=== PATIENT | female | born 1950 | race Caucasian/White ===

== ENCOUNTER 2022-02-17 11:34 | Emergency (ER) | payer MEDICARE, BC ==
--- NOTE | 2022-02-17 11:38 | ERPHSYRPT ---
- History of Present Illness Time Seen by Provider: 02/17/22 11:38 Source: patient, EMS Exam Limitations: no limitations Physician History: This is a 71-year-old white female who had been in the [facility] postoperatively after having an ostomy placed. It is in the right lower quadrant of her abdomen. In the last week patient has noticed some bleeding from the site. The concern is that today, it was more profuse and constant. Upon arrival to the emergency department, the ostomy itself was pink and functioning. However there was evidence of peristomal brisk bleeding. Patient denies any abdominal pain. Patient denies chest pain. She has no shortness of breath. Timing/Duration: week(s), intermittent, worse Severity: mild (To moderate) Associated Symptoms: weakness, No nausea, No vomiting, No abdominal pain, No shortness of breath, No chest pain Allergies/Adverse Reactions: No Known Drug Allergies Allergy (Unverified 02/17/22 11:55) Travel Risk - International Travel Have you traveled outside of the country in past 3 weeks: No - Coronavirus Screening Are you exhibiting any of the following symptoms?: No Close contact with a COVID-19 positive Pt in past 14-21 Days: No - Review of Systems Constitutional: Weakness Eyes: No Symptoms Ears, Nose, & Throat: No Symptoms Respiratory: No Symptoms Cardiac: No Symptoms Abdominal/Gastrointestinal: No Symptoms Genitourinary Symptoms: No Symptoms Musculoskeletal: No Symptoms Skin: No Symptoms Neurological: No Symptoms Psychological: No Symptoms Endocrine: No Symptoms Hematologic/Lymphatic: Blood Clots (Earlier today and the ostomy site/bag) - Past Medical History Pertinent Past Medical History: Yes - Nursing Vital Signs Nursing Vital Signs: Initial Vital Signs Temperature 96.7 F 02/17/22 11:36 Pulse Rate 79 02/17/22 11:36 Respiratory Rate 16 02/17/22 11:36 Blood Pressure 119/56 02/17/22 11:36 O2 Sat by Pulse Oximetry 99 02/17/22 11:36 Pain Scale Pain Intensity 0 - Physical Exam General Appearance: no apparent distress, alert, anxiety Eye Exam: PERRL/EOMI, eyes nml inspection, pale conjunctivae Ears, Nose, Throat Exam: normal ENT inspection, dry mucous membranes Neck Exam: normal inspection, non-tender, supple, full range of motion Respiratory Exam: normal breath sounds, lungs clear, airway intact, No chest tenderness, No respiratory distress Cardiovascular Exam: regular rate/rhythm, normal heart sounds, normal peripheral pulses Gastrointestinal/Abdomen Exam: soft, normal bowel sounds, tenderness (Around stoma site.), other (There is peristomal excoriation with some bleeding in the caudal portion of the skin around the peristomal area. There is no evidence of bleeding from the stoma itself. It is pink and it is functioning.) Pelvic Exam: not done Rectal Exam: not done Back Exam: normal inspection, normal range of motion, No CVA tenderness, No vertebral tenderness Extremity Exam: normal inspection, normal range of motion, pelvis stable Neurologic Exam: alert, oriented x 3, cooperative Skin Exam: pale Lymphatic Exam: No adenopathy SpO2 Interpretation: normal O2 Delivery: Room Air - Course Nursing assessment & vital signs reviewed: Yes Ordered Tests: Active Orders 24 hr Category Date Time Status ABDOMEN AND PELVIS W/0 CONTRAS [CT] Stat Exams 02/17/22 14:06 Taken CBC W DIFF Stat Lab 02/17/22 12:25 Completed CMP Stat Lab 02/17/22 12:25 Completed PROTIME WITH INR Stat Lab 02/17/22 12:25 Completed Medication Summary Generic Name Dose Route Start Last Admin Trade Name Freq PRN Reason Stop Dose Admin Sodium Chloride 1,000 mls @ 100 mls/hr 02/17/22 13:15 02/17/22 13:18 Sodium Chloride 0.9% 1000 Ml IV 03/19/22 13:14 100 mls/hr .Q10H FRIDA Administration Lab/Rad Data: Laboratory Result Diagrams 02/17/22 12:25 02/17/22 12:25 Laboratory Results 02/17/22 02/17/22 02/17/22 Range/Units 13:20 12:25 12:25 WBC (4.0-10.5) K/mm3 RBC (4.1-5.4) M/mm3 Hgb (12.0-16.0) gm/dl Hct (35-47) % MCV (78-100) fl MCH (26-32) pg MCHC (32-36) g/dl RDW (11.5-14.0) % Plt Count (150-450) K/mm3 MPV (7.5-11.0) fl Gran % (36.0-66.0) % Eos # (Auto) (0-0.5) Absolute Lymphs (auto) (1.0-4.6) Absolute Monos (auto) (0.0-1.3) Lymphocytes % (24.0-44.0) % Monocytes % (0.0-12.0) % Eosinophils % (0.00-5.0) % Basophils % (0.0-0.4) % Absolute Granulocytes (1.4-6.9) Basophils # (0-0.4) PT 17.3 H (9.4-12.5) SECONDS INR 1.47 (0.8-3.0) Sodium 129 L (137-145) mmol/L Potassium 3.3 L (3.5-5.1) mmol/L Chloride 90 L (98-107) mmol/L Carbon Dioxide 29 (22-30) mmol/L Anion Gap 13.8 (5-15) MEQ/L BUN 55 H (7-17) mg/dL Creatinine 2.90 H (0.52-1.04) mg/dL Estimated GFR 17.0 ML/MIN Glucose 123 H (74-106) mg/dL Calcium 8.0 L (8.4-10.2) mg/dL Total Bilirubin 2.80 H (0.2-1.3) mg/dL AST 99 H (14-36) U/L ALT 67 H (0-35) U/L Alkaline Phosphatase 188 H (38-126) U/L Serum Total Protein 6.1 L (6.3-8.2) g/dL Albumin 3.3 L (3.5-5.0) g/dL ABO Group O Rh Factor POSITIVE Antibody Screen POSITIVE (NEGATIVE) Crossmatch Pending 02/17/22 Range/Units 12:25 WBC 5.7 (4.0-10.5) K/mm3 RBC 1.98 L (4.1-5.4) M/mm3 Hgb 6.2 L* (12.0-16.0) gm/dl Hct 18.8 L (35-47) % MCV 94.9 (78-100) fl MCH 31.3 (26-32) pg MCHC 33.0 (32-36) g/dl RDW 14.9 H (11.5-14.0) % Plt Count 108 L (150-450) K/mm3 MPV 11.0 (7.5-11.0) fl Gran % 74.0 H (36.0-66.0) % Eos # (Auto) 0.16 (0-0.5) Absolute Lymphs (auto) 0.83 L (1.0-4.6) Absolute Monos (auto) 0.48 (0.0-1.3) Lymphocytes % 14.5 L (24.0-44.0) % Monocytes % 8.4 (0.0-12.0) % Eosinophils % 2.8 (0.00-5.0) % Basophils % 0.3 (0.0-0.4) % Absolute Granulocytes 4.24 (1.4-6.9) Basophils # 0.02 (0-0.4) PT (9.4-12.5) SECONDS INR (0.8-3.0) Sodium (137-145) mmol/L Potassium (3.5-5.1) mmol/L Chloride (98-107) mmol/L Carbon Dioxide (22-30) mmol/L Anion Gap (5-15) MEQ/L BUN (7-17) mg/dL Creatinine (0.52-1.04) mg/dL Estimated GFR ML/MIN Glucose (74-106) mg/dL Calcium (8.4-10.2) mg/dL Total Bilirubin (0.2-1.3) mg/dL AST (14-36) U/L ALT (0-35) U/L Alkaline Phosphatase (38-126) U/L Serum Total Protein (6.3-8.2) g/dL Albumin (3.5-5.0) g/dL ABO Group Rh Factor Antibody Screen (NEGATIVE) Crossmatch - Progress Progress: improved, re-examined Progress Note: 02/17/22 14:17 I was able to obtain more history from the patient's . He states that the patient has chronically had issues with symptomatic anemia with hemoglobin as low as 3. One of the reasons the patient had a and ostomy is because they could not localize an area of bleeding from the large or small intestine. They remove the most likely area. However, the patient has had significant bleeding enough to decrease the hemoglobin to 6.2. I was just notified that the patient has at least 1 antibody during the type and screen/cross match. It will be at least 10 hours before we can get any blood that is crossmatched for this patient. The patient is hemodynamically stable at this time. Patient's surgeon is Dr. Krishna. Patient's primary care physician is Dr. Lang. 02/17/22 14:[address] Lang, the patient's primary care physician. In addition to the chronic recurring anemia and the inability to localize the area of intestinal bleeding, the patient has short gut syndrome. He does not feel that the patient should be admitted to this facility but should be admitted to a facility that has a gasser machine operator, general surgery and nephrology specialists available. 02/17/22 15:46 I contacted [facility] and spoke with nurse practitioner Fior Topete who was answering for Dr. Diaz. I reviewed the patient hist ory, physical findings, lab results, and diagnoses. They accept this patient in transfer to their facility. Discussed with : Benjamín Counseled pt/family regarding: lab results, diagnosis, need for follow-up, rad results - Departure Departure Disposition: Transfer Clinical Impression: Symptomatic anemia, Hemorrhage requiring transfusion, Hyponatremia, Short gut syndrome, Acute renal insufficiency, Elevated liver function tests Condition: Fair Critical Care Time: Yes Critical Care Time(excluding separately billable procedures): Critical 30-74 mins (30 minutes) Referrals: JEAN MARIE LANG MD [Primary Care Provider] - Follow up/PCP as directed
[2022-02-17 12:34] LABS: Absolute Neutrophil Ct (ANC) 4.24 (1.4-6.9); Basophil (Absolute #) 0.02 (0-0.4); Eosinophil % 2.8 % (0.00-5.0); Eosinophil (Absolute #) 0.16 (0-0.5); Hematocrit 18.8 % (35-47); Lymphocyte (Absolute #) 0.83 (1.0-4.6); Lymphocytes % 14.5 % (24.0-44.0); Mean Cell Volume 94.9 fl (78-100); Mean Corpuscular Hemoglobin 31.3 pg (26-32); Monocyte (Absolute #) 0.48 (0.0-1.3); Monocytes % 8.4 % (0.0-12.0); Platelet Count 108 K/mm3 (150-450); Red Blood Count 1.98 M/mm3 (4.1-5.4); Red Cell Distribution Width 14.9 % (11.5-14.0); White Blood Count 5.7 K/mm3 (4.0-10.5)
[2022-02-17 12:38] LABS: INR 1.47 (0.8-3.0); PROTIME 17.3 SECONDS (9.4-12.5)
[2022-02-17 12:45] LABS: ALBUMIN 3.3 g/dL (3.5-5.0); ANION GAP 13.8 MEQ/L (5-15); BILIRUBIN,TOTAL 2.8 mg/dL (0.2-1.3); Creatinine 1 2.9 mg/dL (0.52-1.04); Potassium 3.3 mmol/L (3.5-5.1); Total Protein 6.1 g/dL (6.3-8.2)
[2022-02-17 12:50] LABS: Hemoglobin 6.2 gm/dl (12.0-16.0)
[2022-02-17] MEDS ORDERED: Sodium Chloride 0.9% 1000 ML 1,000 ML IV SCH (13:15)
[2022-02-17] MEDS ORDERED: Sodium Chloride 0.9% 1000 ML 1,000 ML ONE (13:17)
[2022-02-17 14:24] LABS: ABO TYPING O; Antibody Screen POSITIVE (NEGATIVE); RH TYPING POSITIVE
[2022-02-17 15:52] LABS: CROSS MATCH (PRBC) INCOMPATIBLE (COMPATIBLE)
[2022-02-17 16:06] VITALS: BP 111/52; PULSE 77; O2SAT 100
--- NOTE | 2022-02-17 16:33 | XRAY ---
Indication: Bleeding around stoma. Multiple contiguous axial images obtained through the abdomen and pelvis without contrast. Comparison: None Lung bases are clear. Heart not enlarged. Small fluid in distal esophagus projecting from gastroesophageal reflux. Stomach is distended with food/fluid. Noncontrasted stomach and bowel loops appear nonobstructed with right lower quadrant colostomy. No suspicious fluid or air collection around stoma. Remaining colon demonstrates scattered diverticulosis without diverticulitis. Cirrhotic appearing liver with small perihepatic fluid. Spleen is enlarged measuring 13 cm. Tiny splenic/hepatic calcified granulomas. Previous cholecystectomy and hysterectomy. No walled off fluid collection or free air. Remaining pancreas, adrenal glands, kidneys, ureters, and bladder are unremarkable for noncontrast exam. Moderate scattered aortoiliac calcifications, especially origin right common iliac artery. No AAA. Osseous structures intact with osteopenia, mild/moderate multilevel degenerative spondylosis, minimal 2-3 mm L4 spondylolisthesis, mild dextroscoliosis centered at L3, and mild degenerative changes both hips. Impression: 1. Right lower quadrant colostomy without complications. 2. Small gastroesophageal reflux in distal esophagus. 3. Cirrhotic liver with perihepatic ascites and splenomegaly. 4. Diffuse arteriosclerotic disease, greatest right common iliac artery. CTA may yield further information if clinically warranted. 5. Colonic diverticulosis, chronic bony findings, and old granulomatous disease.
[2022-02-21 09:12] LABS: AB ID Interp SEE SEPARATE REPORT; ABO Blood Group and Rh Type SEE SEPARATE REPORT; Blood Bank Reference Report SEE SEPARATE REPORT
== END 2022-02-17 16:58 | disposition short-term general hospital (02) ==
LOC: ED 11:34
DX: K94.01 Colostomy hemorrhage (principal); D64.9 Anemia, unspecified; K91.2 Postsurgical malabsorption, not elsewhere classified; E87.1 Hypo-osmolality and hyponatremia; N28.9 Disorder of kidney and ureter, unspecified; R79.89 Other specified abnormal findings of blood chemistry
CPT/HCPCS: 36415; 74176; 80053; 85025; 85610; 86850; 86870; 86900; 86901; 86922; 93041; 99285; 99291

== ENCOUNTER 2022-03-28 19:14 | Emergency (ER) | payer MEDICARE, BC ==
[2022-03-28 20:22] LABS: Absolute Neutrophil Ct (ANC) 3.15 x10^3/uL (1.4-6.9); Basophil (Absolute #) 0.03 x10^3/uL (0-0.4); Eosinophil % 2.7 % (0.00-5.0); Eosinophil (Absolute #) 0.12 x10^3/uL (0-0.5); Hematocrit 31.9 % (35-47); Hemoglobin 10.7 g/dL (12.0-16.0); Lymphocyte (Absolute #) 0.62 x10^3/uL (1.0-4.6); Lymphocytes % 14.1 % (24.0-44.0); Mean Cell Volume 90.4 fL (78-100); Mean Corpuscular Hemoglobin 30.3 pg (26-32); Mean Corpuscular Hgb Concent. 33.5 g/dL (32-36); Mean Platelet Volume 11.6 fL (7.5-11.0); Monocyte (Absolute #) 0.47 x10^3/uL (0.0-1.3); Monocytes % 10.7 % (0.0-12.0); Neutrophil % 71.6 % (36.0-66.0); Platelet Count 101 x10^3/uL (150-450); Red Blood Count 3.53 x10^6/uL (4.1-5.4); Red Cell Distribution Width 15.3 % (11.5-14.0); White Blood Count 4.4 x10^3/uL (4.0-10.5)
--- NOTE | 2022-03-28 20:23 | ERPHSYRPT ---
- History of Present Illness Time Seen by Provider: 03/28/22 19:50 Source: patient Exam Limitations: no limitations Patient Subjective Stated Complaint: pt states "I seen Dr. Garg today and they wanted to get me fluids cause my kidney function was down." Triage Nursing Assessment: Pt presents to ED via wheelchair, pt alert and oriented x3, skin pwd, pt was sent by Dr. Garg after appointment today to get fluids d/t dehydration and low kidney function, pt has ileostomy and was leaking upon triage, pt cleaned, emptied ileostomy, and changed into gown, pt denies pain, dizzines, sob, or chest pain Physician History: 71-year-old female referred to our ED from her vmware administrator. Patient states nephrology office was supposed to call us for instructions. We have not received any call from nephrology office. Patient believes the referral to our ED was for IV fluids. Patient unsure. Patient dates she feels well. On our exam it was observed that her ileostomy bag was leaking. It was changed. Surrounding soft tissue intact. Patient feels well. No dizziness. No chest pain or shortness of breath no nausea vomiting or diaphoresis. No weakness. Patient voices no other complaint or concerns at this time. Timing/Duration: today Severity: mild Modifying Factors: Improves With: nothing Associated Symptoms: denies symptoms Allergies/Adverse Reactions: No Known Drug Allergies Allergy (Verified 03/28/22 19:43) Home Medications: Uotcv-X-[id number] [Beano] 150 units PO DAILY 03/28/22 [History] Cholestyramine [Cholestyramine Resin] 4 g PO TID 03/28/22 [History] Ciclesonide [Omnaris] 1 spray DAILY 03/28/22 [History] Diphenoxylate HCl/Atropine [Lomotil 2.5-0.025 mg Tablet] 1 tab PO TID 03/28/22 [History] Escitalopram Oxalate [Lexapro] 5 mg PO DAILY 03/28/22 [History] Glucagon [Baqsimi] 3 mg PRN 03/28/22 [History] Hydrocodone/Acetaminophen [Hydrocodone-Acetamin 5-325 mg] 1 tab PO PRN 03/28/22 [History] Levothyroxine Sodium [Synthroid] 137 mcg PO DAILY 03/28/22 [History] Midodrine HCl 5 mg PO TID 03/28/22 [History] Pantoprazole 20 mg [Protonix 20MG Tablet] 20 mg PO DAILY 03/28/22 [History] Hx Tetanus, Diphtheria Vaccination/Date Given: Yes Hx Influenza Vaccination/Date Given: No Hx Pneumococcal Vaccination/Date Given: No Immunizations Up to Date: Yes Travel Risk - International Travel Have you traveled outside of the country in past 3 weeks: No - Coronavirus Screening Are you exhibiting any of the following symptoms?: No Close contact with a COVID-19 positive Pt in past 14-21 Days: No - Vaccine Status Have you recieved a Covid-19 vaccination: Yes 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: [employer] - Review of Systems Constitutional: No Symptoms, No Fever, No Chills Eyes: No Symptoms Ears, Nose, & Throat: No Symptoms Respiratory: No Symptoms, No Cough, No Dyspnea Cardiac: No Symptoms, No Chest Pain, No Edema, No Syncope Abdominal/Gastrointestinal: No Symptoms, No Abdominal Pain, No Nausea, No Vomiting, No Diarrhea Genitourinary Symptoms: No Symptoms, No Dysuria Musculoskeletal: No Symptoms, No Back Pain, No Neck Pain Skin: No Symptoms, No Rash Neurological: No Symptoms, No Dizziness, No Focal Weakness, No Sensory Changes Psychological: No Symptoms Endocrine: No Symptoms Hematologic/Lymphatic: No Symptoms Immunological/Allergic: No Symptoms All Other Systems: Reviewed and Negative - Past Medical History Pertinent Past Medical History: Yes Neurological History: No Pertinent History ENT History: No Pertinent History Cardiac History: High Cholesterol, Hypertension Respiratory History: No Pertinent History Endocrine Medical History: Liver Disease, Thyroid Cancer Musculoskeletal History: No Pertinent History GI Medical History: Colorectal Cancer, Other History: Renal Disease Psycho-Social History: Depression Female Reproductive Disorders: No Pertinent History - Past Surgical History Past Surgical History: Yes Neuro Surgical History: No Pertinent History Cardiac: No Pertinent History Respiratory: No Pertinent History Gastrointestinal: Colon Resection, Other Genitourinary: No Pertinent History Musculoskeletal: No Pertinent History Female Surgical History: Tubal Ligation Other Surgical History: illeosotomy - Social History Smoking Status: Former smoker Exposure to second hand smoke: No Drug Use: none Patient Lives Alone: No - Nursing Vital Signs Nursing Vital Signs: Initial Vital Signs Temperature 97.9 F 03/28/22 19:44 Pulse Rate 75 03/28/22 19:44 Respiratory Rate 16 03/28/22 19:44 Blood Pressure 141/68 03/28/22 19:44 O2 Sat by Pulse Oximetry 94 L 03/28/22 19:44 Pain Scale Pain Intensity 0 - Physical Exam General Appearance: no apparent distress, alert Eye Exam: PERRL/EOMI, eyes nml inspection Ears, Nose, Throat Exam: normal ENT inspection, TMs normal, pharynx normal, moist mucous membranes Neck Exam: normal inspection, non-tender, supple, full range of motion Respiratory Exam: normal breath sounds, lungs clear, No respiratory distress Cardiovascular Exam: regular rate/rhythm, normal heart sounds, normal peripheral pulses Gastrointestinal/Abdomen Exam: soft, normal bowel sounds, other (Ileostomy bag leaking. It was changed by staff radiographer. Adjacent soft tissue intact.), No tenderness, No mass Back Exam: normal inspection, normal range of motion, No CVA tenderness, No vertebral tenderness Extremity Exam: normal inspection, normal range of motion, pelvis stable Neurologic Exam: alert, oriented x 3, cooperative, normal mood/affect, nml cerebellar function, nml station & gait, sensation nml, No motor deficits Skin Exam: normal color, warm, dry, No rash Lymphatic Exam: No adenopathy SpO2 Interpretation: normal SpO2: 94 O2 Delivery: Room Air - Course Nursing assessment & vital signs reviewed: Yes Ordered Tests: Active Orders 24 hr Category Date Time Status CBC W DIFF Stat Lab 03/28/22 20:12 Completed CMP Stat Lab 03/28/22 20:12 Completed CULTURE,URINE Stat Lab 03/28/22 20:34 Received UA W/RFX CULTURE Stat Lab 03/28/22 20:34 Completed Medication Summary Discontinued Medications Generic Name Dose Route Start Last Admin Trade Name Ajith PRN Reason Stop Dose Admin Ceftriaxone Sodium/Dextrose 1 g in 50 mls @ 100 mls/hr 03/28/22 21:25 03/28/22 22:07 Rocephin 1 Gm-D5w 50 Ml Bag IV 03/28/22 21:54 Infused STAT STA Infusion Sodium Chloride 1,000 mls @ 999 mls/hr 03/28/22 21:26 03/28/22 22:18 Sodium Chloride 0.9% 1000 Ml IV 03/28/22 22:26 999 mls/hr .Q1H1M STA Infusion Sodium Chloride Confirm 03/28/22 21:29 Sodium Chloride 0.9% 1000 Ml Administered 03/28/22 21:30 Dose 1,000 mls @ ud .ROUTE .STK-MED ONE Ceftriaxone Sodium/Dextrose Confirm 03/28/22 21:29 Rocephin 1 Gm-D5w 50 Ml Bag Administered 03/28/22 21:30 Dose 1 g in 50 mls @ ud IV .STK-MED ONE Lab/Rad Data: Laboratory Result Diagrams 03/28/22 20:12 03/28/22 20:12 Laboratory Results 03/28/22 03/28/22 03/28/22 Range/Units 20:34 20:12 20:12 WBC 4.4 (4.0-10.5) x10^3/uL RBC 3.53 L (4.1-5.4) x10^6/uL Hgb 10.7 L (12.0-16.0) g/dL Hct 31.9 L (35-47) % MCV 90.4 (78-100) fL MCH 30.3 (26-32) pg MCHC 33.5 (32-36) g/dL RDW 15.3 H (11.5-14.0) % Plt Count 101 L (150-450) x10^3/uL MPV 11.6 H (7.5-11.0) fL Gran % 71.6 H (36.0-66.0) % Immature Gran % (Auto) 0.2 (0.00-0.4) % Nucleat RBC Rel Count 0.0 (0.00-0.1) % Eos # (Auto) 0.12 (0-0.5) x10^3/uL Immature Gran # (Auto) 0.01 (0.00-0.03) x10^3u/L Absolute Lymphs (auto) 0.62 L (1.0-4.6) x10^3/uL Absolute Monos (auto) 0.47 (0.0-1.3) x10^3/uL Absolute Nucleated RBC 0.00 (0.00-0.01) x10^3u/L Lymphocytes % 14.1 L (24.0-44.0) % Monocytes % 10.7 (0.0-12.0) % Eosinophils % 2.7 (0.00-5.0) % Basophils % 0.7 (0.0-0.4) % Absolute Granulocytes 3.15 (1.4-6.9) x10^3/uL Basophils # 0.03 (0-0.4) x10^3/uL Sodium 133 L (137-145) mmol/L Potassium 4.2 (3.5-5.1) mmol/L Chloride 90 L (98-107) mmol/L Carbon Dioxide 29 (22-30) mmol/L Anion Gap 18.4 H (5-15) MEQ/L BUN 51 H (7-17) mg/dL Creatinine 3.36 H (0.52-1.04) mg/dL Estimated GFR 14.3 ML/MIN Glucose 229 H (74-106) mg/dL Calcium 7.7 L (8.4-10.2) mg/dL Total Bilirubin 2.60 H (0.2-1.3) mg/dL AST 98 H (14-36) U/L ALT 60 H (0-35) U/L Alkaline Phosphatase 226 H (38-126) U/L Serum Total Protein 7.2 (6.3-8.2) g/dL Albumin 3.9 (3.5-5.0) g/dL Urinalys Dipstick Clnc MAIN LAB Urine Color DARK YELLOW (YELLOW) Urine Appearance CLEAR (CLEAR) Urine pH 6.0 (5-6) Ur Specific [place] 1.020 (1.005-1.025) POC Urine Protein Conf 30 (Negative) Urine Ketones TRACE (NEGATIVE) Urine Nitrite NEGATIVE (NEGATIVE) Urine Bilirubin SMALL (NEGATIVE) Urine Urobilinogen 0.2 (0-1) mg/dL Urine Leukocytes TRACE (NEGATIVE) Urine WBC (Auto) 16-25 (0-5) /HPF Urine RBC (Auto) 0-2 (0-2) /HPF U Hyaline Cast (Auto) 6-10 (0-2) /LPF U Epithel Cells (Auto) RARE (FEW) /HPF Urine Bacteria (Auto) NONE SEEN (NEGATIVE) /HPF Urine RBC NEGATIVE (0-5) Darius/ul Ur Culture Indicated? YES Urine Glucose NEGATIVE (NEGATIVE) mg/dL Slides for Path Review YES - Progress Progress: improved Progress Note: Patient states that her vmware administrator advised her to come to our ED. patient states she had expected the office to call us with instructions. We had not received any phone calls from the vmware administrator office. We tried contacting patient's vmware administrator and spoke to the on-call doctor . He was unaware of this patient and why the patient was sent. He just advised us to obtain basic labs and to assess clinically 03/28/22 20:18 A prescription for Keflex was forwarded to patient's pharmacy. Patient states that due to her ileostomy pills tend to run through without full digestion. Patient advised 500 mg but higher still is possible given her GFR. Patient states he is ready to be discharged. Patient agrees to follow-up with her primary care doctor within 48 hours for evaluation. We attempted to contact Dr. Lang for direction on fluid administration however Dr. Lang is not available this evening 03/28/22 22:45 Counseled pt/family regarding: lab results, diagnosis, need for follow-up - Departure Departure Disposition: Home Clinical Impression: Dehydration, UTI (urinary tract infection), CRI (chronic renal insufficiency) Condition: Stable Critical Care Time: No Referrals: JEAN MARIE LANG MD [Primary Care Provider] - Follow up/PCP as directed Additional Instructions: Discharge/Care Plan LEIGH MORENO was seen on 03/28/22 in the Emergency Room. The patient was counseled regarding Diagnosis,Lab results, Imaging studies, need for follow up and when to return to the Emergency Room. Prescriptions given: Discharge Note I have spoken with the patient and/or caregivers. I have explained the patient's condition, diagnosis and treatment plan based on the information available to me at this time. I have answered the patient's and/or caregiver's questions and addressed any concerns. The patient and/or caregivers have as good understanding of the patient's diagnosis, condition and treatment plan as can be expected at this point. The vital signs have been stable. The patient's condition is stable and appropriate for discharge from the emergency department. The patient will pursue further outpatient evaluation with the primary care physician or other designated or consulting physician as outlined in the discharge instructions. The patient and/or caregivers are agreeable to this plan of care and follow-up instructions have been explained in detail. The patient and/or caregivers have received these instruction. The patient/and or caregivers are aware that any significant change in condition or worsening of symptoms should prompt an immediate return to this or the closest emergency department or call 911. Prescriptions: Cephalexin Mh 500 mg [Keflex 500 mg] 500 mg PO BID 5 Days #10 cap
[2022-03-28 20:35] LABS: ALBUMIN 3.9 g/dL (3.5-5.0); ANION GAP 18.4 MEQ/L (5-15); BILIRUBIN,TOTAL 2.6 mg/dL (0.2-1.3); Calcium 7.7 mg/dL (8.4-10.2); Creatinine 1 3.36 mg/dL (0.52-1.04); EST GLOMERULAR FILTRATION RATE 14.3 ML/MIN; Potassium 4.2 mmol/L (3.5-5.1); Total Protein 7.2 g/dL (6.3-8.2)
[2022-03-28 20:46] LABS: Slide Review 1 YES
[2022-03-28 21:22] LABS: Epithelial Cells RARE /HPF (FEW); RBC 0-2 /HPF (0-2)
[2022-03-28 21:23] LABS: Appearance CLEAR (CLEAR); Bilirubin SMALL (NEGATIVE); Dipstick done @ ? MAIN LAB; Glucose NEGATIVE (NEGATIVE); Ketones TRACE (NEGATIVE); Nitrite NEGATIVE (NEGATIVE); Protein,Urine Dip 30 (Negative); RBC NEGATIVE Ery/ul (0-5); Urobilinogen 0.2 mg/dL (0-1)
[2022-03-28 21:24] LABS: Bacteria NONE SEEN /HPF (NEGATIVE); Urine Cultured Indicated? YES
[2022-03-28] MEDS ORDERED: ROCEPHIN 1 Gm-D5w 50 ml Bag** 1 G/50 ML IVPB IV STA (21:25)
[2022-03-28] MEDS ORDERED: Sodium Chloride 0.9% 1000 ML 1,000 ML IV STA (21:26)
[2022-03-28] MEDS ORDERED: ROCEPHIN 1 Gm-D5w 50 ml Bag** 1 G/50 ML IVPB IV ONE (21:29)
[2022-03-28] MEDS ORDERED: Sodium Chloride 0.9% 1000 ML 1,000 ML ONE (21:29)
[2022-03-28 22:08] VITALS: BP 106/51
[2022-03-28 23:03] VITALS: PULSE 65; O2SAT 96
== END 2022-03-28 23:04 | disposition home or self-care (01) ==
LOC: ED 19:14
DX: E86.0 Dehydration (principal); N39.0 Urinary tract infection, site not specified; I12.9 Hypertensive chronic kidney disease with stage 1 through stage 4 chronic kidney disease, or unspecified chronic kidney disease; N18.9 Chronic kidney disease, unspecified; K94.19 Other complications of enterostomy; E78.5 Hyperlipidemia, unspecified; Z79.891 Long term (current) use of opiate analgesic; Z79.899 Other long term (current) drug therapy
CPT/HCPCS: 36415; 80053; 81015; 85025; 87086; 96365; 99284; J0696; J1642

== ENCOUNTER 2022-11-13 12:33 | Emergency (ER) | payer MEDICARE, BC ==
[2022-11-13] MEDS ORDERED: Sodium Chloride 0.9% 1000 ML 1,000 ML IV STA ×3 (13:44→16:22)
[2022-11-13] MEDS ORDERED: Sodium Chloride 0.9% 1000 ML 1,000 ML ONE ×4 (13:45→17:20)
[2022-11-13 13:54] LABS: Hematocrit 19.8 % (35-47); Mean Cell Volume 113.1 fL (78-100); Mean Corpuscular Hemoglobin 34.3 pg (26-32); Mean Corpuscular Hgb Concent. 30.3 g/dL (32-36); Mean Platelet Volume 12.7 fL (7.5-11.0); Platelet Count 166 x10^3/uL (150-450); Red Blood Count 1.75 x10^6/uL (4.1-5.4); Red Cell Distribution Width 22.3 % (11.5-14.0); White Blood Count 20.4 x10^3/uL (4.0-10.5)
[2022-11-13 13:58] LABS: ALBUMIN 2.5 g/dL (3.5-5.0); ANION GAP 15.4 MEQ/L (5-15); BILIRUBIN,TOTAL 16.2 mg/dL (0.2-1.3); Calcium 7.6 mg/dL (8.4-10.2); Creatinine 1 2.32 mg/dL (0.52-1.04); EST GLOMERULAR FILTRATION RATE 21.9 ML/MIN; Potassium 4.6 mmol/L (3.5-5.1); Total Protein 4.9 g/dL (6.3-8.2)
--- NOTE | 2022-11-13 14:09 | ERPHSYRPT ---
- History of Present Illness Source: patient, other (Spouse/Daughters) Patient Subjective Stated Complaint: Weakness Triage Nursing Assessment: Patient brought back to ED per w/c and transferred to bed with assist of 1. Patient A+O X3. Patient's skin jaundiced, cool and dry. Patient has end stage cirrohis of liver and stage 3 kidney disease. Patient's stated patient has been weak the past few days and not eating or drinking well. Patient denies pain or discomfort. Patient's samy legs noted to be slightly swollen. Physician History: 72 yo wf w end stage hepatic failure and renal failure presents w lethargy/hypotension/confusion x 1week. Pt has hepatic failure due to LYLES. Family states that she was admitted at [facility] 2 wks ago. Pt extremely jaundiced and hypotensive upon arrival. Fever/nausea/vomiting/diarrhea/melena/hematochezia/dysuria/hematuria are all denied. 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 Timing/Duration: other (1week) Modifying Factors: Improves With: nothing Associated Symptoms: denies symptoms, loss of appetite Allergies/Adverse Reactions: levofloxacin [From Levaquin] Allergy (Verified 11/13/22 12:47) Home Medications: Fnmcu-[id number]-Ocqhqewcpsasj [Beano] 150 units PO DAILY 03/28/22 [History] Cholestyramine [Cholestyramine Resin] 4 g PO TID 03/28/22 [History] Ciclesonide [Omnaris] 1 spray DAILY 03/28/22 [History] Diphenoxylate HCl/Atropine [Lomotil 2.5-0.025 mg Tablet] 1 tab PO TID 03/28/22 [History] Escitalopram Oxalate [Lexapro] 5 mg PO DAILY 03/28/22 [History] Glucagon [Baqsimi] 3 mg PRN 03/28/22 [History] Hydrocodone/Acetaminophen [Hydrocodone-Acetamin 5-325 mg] 1 tab PO PRN 03/15 02/03 [History] Levothyroxine Sodium [Synthroid] 137 mcg PO DAILY 03/28/22 [History] Midodrine HCl 5 mg PO TID 03/28/22 [History] Pantoprazole 20 mg [Protonix 20MG Tablet] 20 mg PO DAILY 03/28/22 [History] Hx Tetanus, Diphtheria Vaccination/Date Given: Yes Hx Influenza Vaccination/Date Given: No Hx Pneumococcal Vaccination/Date Given: No Immunizations Up to Date: Yes Travel Risk - International Travel Have you traveled outside of the country in past 3 weeks: No - Coronavirus Screening Are you exhibiting any of the following symptoms?: No Close contact with a COVID-19 positive Pt in past 14-21 Days: No - Vaccine Status Have you recieved a Covid-19 vaccination: Yes [employer] 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: [employer] - Review of Systems Constitutional: No Symptoms, Fatigue, Lethargy, Malaise Eyes: No Symptoms Ears, Nose, & Throat: No Symptoms Respiratory: No Symptoms Cardiac: No Symptoms Abdominal/Gastrointestinal: No Symptoms, Appetite Changes Genitourinary Symptoms: No Symptoms Musculoskeletal: No Symptoms Skin: Other (Markedly jaundiced) Neurological: No Symptoms Psychological: No Symptoms Endocrine: No Symptoms Hematologic/Lymphatic: No Symptoms Immunological/Allergic: No Symptoms - Past Medical History Pertinent Past Medical History: Yes Neurological History: No Pertinent History ENT History: No Pertinent History Cardiac History: High Cholesterol, Hypertension Respiratory History: No Pertinent History Endocrine Medical History: Liver Disease, Thyroid Cancer Musculoskeletal History: No Pertinent History GI Medical History: Colorectal Cancer, Other History: Renal Disease Psycho-Social History: Depression Female Reproductive Disorders: No Pertinent History Other Medical History: End stage cirrohis. Stage 3 kidney disease - Past Surgical History Past Surgical History: Yes Neuro Surgical History: No Pertinent History Cardiac: No Pertinent History Respiratory: No Pertinent History Gastrointestinal: Colon Resection, Other Genitourinary: No Pertinent History Musculoskeletal: No Pertinent History Female Surgical History: Tubal Ligation Other Surgical History: illeosotomy - Social History Smoking Status: Former smoker Exposure to second hand smoke: No Drug Use: none Patient Lives Alone: No - Nursing Vital Signs Nursing Vital Signs: Initial Vital Signs Temperature 97.6 F 11/13/22 12:48 Pulse Rate 62 11/13/22 12:48 Respiratory Rate 18 11/13/22 12:48 Blood Pressure 75/39 11/13/22 12:48 O2 Sat by Pulse Oximetry 98 11/13/22 12:48 Pain Scale Pain Intensity 0 Hypotensive - Physical Exam General Appearance: moderate distress, lethargy Eye Exam: PERRL/EOMI, scleral icterus Ears, Nose, Throat Exam: normal ENT inspection, TMs normal Neck Exam: normal inspection, non-tender, supple, No meningismus, No mass, No Brudzinski, No Kernig's, No carotid bruit Respiratory Exam: airway intact, crackles/rales (Rales at bases B), No chest tenderness, No respiratory distress Cardiovascular Exam: regular rate/rhythm, capillary refill <2 sec, No murmur Gastrointestinal/Abdomen Exam: other (Distended/Good BS/NTTP/iliostome noted) Neurologic Exam: cooperative, brand engineer II-XII nml as tested, motor weakness (Generalized), other (Depressed mood) Skin Exam: jaundice (Markedly jaundiced) SpO2 Interpretation: normal SpO2: 98 O2 Delivery: Room Air - Course Nursing assessment & vital signs reviewed: Yes Ordered Tests: Active Orders 24 hr Category Date Time Status EKG-ER Only STAT Care 11/13/22 13:42 Active IV Insertion STAT Care 11/13/22 13:45 Active IV Insertion-2nd Peripheral STAT Care 11/13/22 16:59 Active CHEST 1 VIEW (PORTABLE) Stat Exams 11/13/22 13:43 Completed AMYLASE Stat Lab 11/13/22 13:13 Completed BLOOD CULTURE Stat Lab 11/13/22 19:00 Received CBC W DIFF Stat Lab 11/13/22 13:13 Results CMP Stat Lab 11/13/22 13:13 Completed CULTURE,URINE Stat Lab 11/13/22 17:27 Received LIPASE Stat Lab 11/13/22 13:13 Completed Lactic Acid Stat Lab 11/13/22 15:25 Completed Lactic Acid Stat Lab 11/13/22 17:31 Completed Manual Differential NC Stat Lab 11/13/22 13:13 Results PROTIME WITH INR Stat Lab 11/13/22 19:00 Completed PTT Stat Lab 11/13/22 19:00 Completed Pathologist Review Stat Lab 11/13/22 13:13 Results TROPONIN Q4H Lab 11/13/22 13:13 Completed TROPONIN Q4H Lab 11/13/22 19:00 Completed TROPONIN Q4H Lab 11/13/22 21:45 Ordered UA W/RFX UR CULTURE Stat Lab 11/13/22 17:27 Completed Medication Summary Generic Name Dose Route Start Last Admin Trade Name Freq PRN Reason Stop Dose Admin Norepinephrine/Dextrose 8 mg in 250 mls @ 15 mls/hr 11/13/22 16:51 11/13/22 19:35 Norepinephrine 8 Mg/250 Ml-D5w IV 12/13/22 16:50 10 mcg/min .[id number] PRN 18.75 mls/hr HYPOTENSION Titration Protocol 8 MCG/MIN Discontinued Medications Generic Name Dose Route Start Last Admin Trade Name Ajith PRN Reason Stop Dose Admin Sodium Chloride 1,000 mls @ 999 mls/hr 11/13/22 13:44 11/13/22 14:49 Sodium Chloride 0.9% 1000 Ml IV 11/13/22 14:44 Infused .Q1H1M STA Infusion Sodium Chloride Confirm 11/13/22 13:45 Sodium Chloride 0.9% 1000 Ml Administered 11/13/22 13:46 Dose 1,000 mls @ ud .ROUTE .STK-MED ONE Sodium Chloride 1,000 mls @ 999 mls/hr 11/13/22 15:19 11/13/22 16:26 Sodium Chloride 0.9% 1000 Ml IV 11/13/22 16:19 Infused .Q1H1M STA Infusion Sodium Chloride Confirm 11/13/22 15:23 Sodium Chloride 0.9% 1000 Ml Administered 11/13/22 15:24 Dose 1,000 mls @ ud .ROUTE .STK-MED ONE Sodium Chloride 1,000 mls @ 999 mls/hr 11/13/22 16:22 11/13/22 17:27 Sodium Chloride 0.9% 1000 Ml IV 11/13/22 17:22 Infused .Q1H1M STA Infusion Sodium Chloride Confirm 11/13/22 16:25 Sodium Chloride 0.9% 1000 Ml Administered 11/13/22 16:26 Dose 1,000 mls @ ud .ROUTE .STK-MED ONE Sodium Chloride Confirm 11/13/22 17:20 Sodium Chloride 0.9% 1000 Ml Administered 11/13/22 17:21 Dose 1,000 mls @ ud .ROUTE .STK-MED ONE Ertapenem 1 g/ Sodium Chloride 100 mls @ 200 mls/hr 11/13/22 17:55 11/13/22 19:42 IV 11/13/22 18:24 200 mls/hr STAT STA Administration Sodium Chloride Confirm 11/13/22 19:36 Sodium Chloride 0.9% Administered 11/13/22 19:37 Dose 100 mls @ ud .ROUTE .STK-MED ONE Lab/Rad Data: Laboratory Result Diagrams 11/13/22 13:13 11/13/22 13:13 Laboratory Results 11/13/22 11/13/22 11/13/22 Range/Units 19:00 19:00 17:31 WBC (4.0-10.5) x10^3/uL RBC (4.1-5.4) x10^6/uL Hgb (12.0-16.0) g/dL Hct (35-47) % MCV (78-100) fL MCH (26-32) pg MCHC (32-36) g/dL RDW (11.5-14.0) % Plt Count (150-450) x10^3/uL MPV (7.5-11.0) fL Segmented Neutrophils (36.0-66.0) % Lymphocytes (Manual) (24-44) % Monocytes (Manual) (0.0-12.0) % Nucleated RBCs % Hypochromia Toxic Granulation Platelet Estimate (NORMAL) RBC Morphology Poikilocytosis Anisocytosis Schistocytes Smear Path Review PT 19.6 H (9.4-12.5) SECONDS INR 1.97 (0.8-3.0) APTT 48.8 H (25.1-36.5) SECONDS Sodium (137-145) mmol/L Potassium (3.5-5.1) mmol/L Chloride (98-107) mmol/L Carbon Dioxide (22-30) mmol/L Anion Gap (5-15) MEQ/L BUN (7-17) mg/dL Creatinine (0.52-1.04) mg/dL Estimated GFR ML/MIN Glucose (74-106) mg/dL Lactic Acid 3.1 H (0.4-2.0) Calcium (8.4-10.2) mg/dL Total Bilirubin (0.2-1.3) mg/dL AST (14-36) U/L ALT (0-35) U/L Alkaline Phosphatase (38-126) U/L Ammonia (9-30) umol/L Troponin I < 0.012 (0.000-0.034) ng/mL Serum Total Protein (6.3-8.2) g/dL Albumin (3.5-5.0) g/dL Amylase (30-110) U/L Lipase (23-300) U/L Urine Color (Yellow) Urine Appearance (Clear) Urine pH (4.6-8.0) Ur Specific [place] (1.005-1.030) Urine Protein (Negative) Urine Glucose (UA) (Negative) mg/dL Urine Ketones (Negative) Urine Blood (Negative) Urine Nitrite (Negative) Urine Bilirubin (Negative) Urine Urobilinogen (0.2) mg/dL Ur Leukocyte Esterase (Negative) U Hyaline Cast (Auto) (0-2) /LPF Urine Microscopic RBC (0-5) /HPF Urine Microscopic WBC (0-5) /HPF Ur Epithelial Cells (None Seen) /HPF Urine Bacteria (None Seen) /HPF Urine Culture Reflexed (NO) ABO Group Rh Factor Antibody Screen (NEGATIVE) Crossmatch 11/13/22 11/13/22 11/13/22 Range/Units 17:27 15:25 14:32 WBC (4.0-10.5) x10^3/uL RBC (4.1-5.4) x10^6/uL Hgb (12.0-16.0) g/dL Hct (35-47) % MCV (78-100) fL MCH (26-32) pg MCHC (32-36) g/dL RDW (11.5-14.0) % Plt Count (150-450) x10^3/uL MPV (7.5-11.0) fL Segmented Neutrophils (36.0-66.0) % Lymphocytes (Manual) (24-44) % Monocytes (Manual) (0.0-12.0) % Nucleated RBCs % Hypochromia Toxic Granulation Platelet Estimate (NORMAL) RBC Morphology Poikilocytosis Anisocytosis Schistocytes Smear Path Review PT (9.4-12.5) SECONDS INR (0.8-3.0) APTT (25.1-36.5) SECONDS Sodium (137-145) mmol/L Potassium (3.5-5.1) mmol/L Chloride (98-107) mmol/L Carbon Dioxide (22-30) mmol/L Anion Gap (5-15) MEQ/L BUN (7-17) mg/dL Creatinine (0.52-1.04) mg/dL Estimated GFR ML/MIN Glucose (74-106) mg/dL Lactic Acid 3.8 H (0.4-2.0) Calcium (8.4-10.2) mg/dL Total Bilirubin (0.2-1.3) mg/dL AST (14-36) U/L ALT (0-35) U/L Alkaline Phosphatase (38-126) U/L Ammonia (9-30) umol/L Troponin I (0.000-0.034) ng/mL Serum Total Protein (6.3-8.2) g/dL Albumin (3.5-5.0) g/dL Amylase (30-110) U/L Lipase (23-300) U/L Urine Color Dark Yellow A (Yellow) Urine Appearance Clear (Clear) Urine pH 6.0 (4.6-8.0) Ur Specific [place] 1.015 (1.005-1.030) Urine Protein Negative (Negative) Urine Glucose (UA) Negative (Negative) mg/dL Urine Ketones Negative (Negative) Urine Blood Negative (Negative) Urine Nitrite Negative (Negative) Urine Bilirubin Moderate A (Negative) Urine Urobilinogen 0.2 (0.2) mg/dL Ur Leukocyte Esterase Moderate A (Negative) U Hyaline Cast (Auto) 3-5 A (0-2) /LPF Urine Microscopic RBC 0-2 (0-5) /HPF Urine Microscopic WBC 11-20 A (0-5) /HPF Ur Epithelial Cells Rare (None Seen) /HPF Urine Bacteria None Seen (None Seen) /HPF Urine Culture Reflexed YES (NO) ABO Group O Rh Factor POSITIVE Antibody Screen POSITIVE (NEGATIVE) Crossmatch 11/13/22 11/13/22 11/13/22 Range/Units 14:32 13:39 13:13 WBC (4.0-10.5) x10^3/uL RBC (4.1-5.4) x10^6/uL Hgb (12.0-16.0) g/dL Hct (35-47) % MCV (78-100) fL MCH (26-32) pg MCHC (32-36) g/dL RDW (11.5-14.0) % Plt Count (150-450) x10^3/uL MPV (7.5-11.0) fL Segmented Neutrophils (36.0-66.0) % Lymphocytes (Manual) (24-44) % Monocytes (Manual) (0.0-12.0) % Nucleated RBCs % Hypochromia Toxic Granulation Platelet Estimate (NORMAL) RBC Morphology Poikilocytosis Anisocytosis Schistocytes Smear Path Review PT (9.4-12.5) SECONDS INR (0.8-3.0) APTT (25.1-36.5) SECONDS Sodium (137-145) mmol/L Potassium (3.5-5.1) mmol/L Chloride (98-107) mmol/L Carbon Dioxide (22-30) mmol/L Anion Gap (5-15) MEQ/L BUN (7-17) mg/dL Creatinine (0.52-1.04) mg/dL Estimated GFR ML/MIN Glucose (74-106) mg/dL Lactic Acid (0.4-2.0) Calcium (8.4-10.2) mg/dL Total Bilirubin (0.2-1.3) mg/dL AST (14-36) U/L ALT (0-35) U/L Alkaline Phosphatase (38-126) U/L Ammonia 17 (9-30) umol/L Troponin I < 0.012 (0.000-0.034) ng/mL Serum Total Protein (6.3-8.2) g/dL Albumin (3.5-5.0) g/dL Amylase (30-110) U/L Lipase (23-300) U/L Urine Color (Yellow) Urine Appearance (Clear) Urine pH (4.6-8.0) Ur Specific [place] (1.005-1.030) Urine Protein (Negative) Urine Glucose (UA) (Negative) mg/dL Urine Ketones (Negative) Urine Blood (Negative) Urine Nitrite (Negative) Urine Bilirubin (Negative) Urine Urobilinogen (0.2) mg/dL Ur Leukocyte Esterase (Negative) U Hyaline Cast (Auto) (0-2) /LPF Urine Microscopic RBC (0-5) /HPF Urine Microscopic WBC (0-5) /HPF Ur Epithelial Cells (None Seen) /HPF Urine Bacteria (None Seen) /HPF Urine Culture Reflexed (NO) ABO Group Rh Factor Antibody Screen (NEGATIVE) Crossmatch Pending 11/13/22 11/13/22 Range/Units 13:13 13:13 WBC 20.4 H (4.0-10.5) x10^3/uL RBC 1.75 L (4.1-5.4) x10^6/uL Hgb 6.0 L* (12.0-16.0) g/dL Hct 19.8 L (35-47) % MCV 113.1 H (78-100) fL MCH 34.3 H (26-32) pg MCHC 30.3 L (32-36) g/dL RDW 22.3 H (11.5-14.0) % Plt Count 166 (150-450) x10^3/uL MPV 12.7 H (7.5-11.0) fL Segmented Neutrophils 95 H (36.0-66.0) % Lymphocytes (Manual) 3 L (24-44) % Monocytes (Manual) 2 (0.0-12.0) % Nucleated RBCs 1 % Hypochromia 1+ Toxic Granulation 2+ Platelet Estimate NORMAL (NORMAL) RBC Morphology ABNORMAL Poikilocytosis 1+ Anisocytosis 2+ Schistocytes 1+ Smear Path Review Pending PT (9.4-12.5) SECONDS INR (0.8-3.0) APTT (25.1-36.5) SECONDS Sodium 125 L (137-145) mmol/L Potassium 4.6 (3.5-5.1) mmol/L Chloride 95 L (98-107) mmol/L Carbon Dioxide 19 L (22-30) mmol/L Anion Gap 15.4 H (5-15) MEQ/L BUN 88 H (7-17) mg/dL Creatinine 2.32 H (0.52-1.04) mg/dL Estimated GFR 21.9 ML/MIN Glucose 166 H (74-106) mg/dL Lactic Acid (0.4-2.0) Calcium 7.6 L (8.4-10.2) mg/dL Total Bilirubin 16.20 H (0.2-1.3) mg/dL AST 213 H (14-36) U/L ALT 203 H (0-35) U/L Alkaline Phosphatase 197 H (38-126) U/L Ammonia (9-30) umol/L Troponin I (0.000-0.034) ng/mL Serum Total Protein 4.9 L (6.3-8.2) g/dL Albumin 2.5 L (3.5-5.0) g/dL Amylase 65 (30-110) U/L Lipase 79 (23-300) U/L Urine Color (Yellow) Urine Appearance (Clear) Urine pH (4.6-8.0) Ur Specific [place] (1.005-1.030) Urine Protein (Negative) Urine Glucose (UA) (Negative) mg/dL Urine Ketones (Negative) Urine Blood (Negative) Urine Nitrite (Negative) Urine Bilirubin (Negative) Urine Urobilinogen (0.2) mg/dL Ur Leukocyte Esterase (Negative) U Hyaline Cast (Auto) (0-2) /LPF Urine Microscopic RBC (0-5) /HPF Urine Microscopic WBC (0-5) /HPF Ur Epithelial Cells (None Seen) /HPF Urine Bacteria (None Seen) /HPF Urine Culture Reflexed (NO) ABO Group Rh Factor Antibody Screen (NEGATIVE) Crossmatch - Progress Progress: improved Progress Note: 11/13/22 14:12 Nursing note and vital signs reviewed No food or housing insecurities noted Full code per All lab results reviewed and results shared w pt/family Additional history per and daughter 11/13/22 15:[address] Yao 11/13/22 16:48 [facility] full and refused pt [facility] also full and refused pt Pt put on wait list at [facility] 3L NS bolus w minimal improvement in BP Levaphed drip started w improvement in BP 1gm IV Invanz given Pt accepted by Dr. Rivera at [facility], but no bed available Pt later accepted by Dr. Mccray at [facility] Blood later appeared in iliostomy drainage 2units PRBC's ordered, but blood not available until possibly tomorrow due to antibodies Pt w BP of 100/39 w Levaphed at 10mcg's/mn w good airway and sats Minimal urine output during stay 11/13/22 20:58 11/13/22 21:01 11/13/22 21:03 11/13/22 21:08 Counseled pt/family regarding: lab results, diagnosis, rad results - Departure Departure Disposition: Transfer Clinical Impression: Hepatorenal failure, Hypotension Condition: Stable Critical Care Time: Yes Critical Care Time(excluding separately billable procedures): Critical 165-194 mins Referrals: JEAN MARIE LANG MD [Primary Care Provider] - Follow up/PCP as directed
--- NOTE | 2022-11-13 14:12 | XRAY ---
Indication: Lethargy and jaundice. Comparison: None Portable chest demonstrates mild left base infiltrate/atelectasis/effusion. Remaining heart and right lung unremarkable with incidental left Port-A-Cath. Bony thorax intact with osteopenia and mild degenerative changes.
[2022-11-13 14:56] LABS: Lymphocytes 3 % (24-44); Monocyte 2 % (0.0-12.0); Neutrophils 95 % (36.0-66.0); Nucleated Red Blood Cell 1 %; Total Cells Counted 100
[2022-11-13 14:57] LABS: ANISOCYTOSIS 2+; Hypochromia 1+; Platelet Estimate NORMAL (NORMAL); Poikilocytosis 1+; Schistocytes 1+; Toxic Granulation 2+
[2022-11-13] MEDS ORDERED: NOREPINEPHRINE 8 MG/250 ML-D5W 8 MG/250 ML PLAST..BAG IV PRN (16:51)
[2022-11-13] MEDS ORDERED: NOREPINEPHRINE 8 MG/250 ML-D5W 8 MG/250 ML PLAST..BAG IV ONE (16:54)
[2022-11-13] MEDS ORDERED: Invanz *** 1 G in Sodium Chloride 100ML MINI-BAG PLUS 100 ML IV STA (17:55)
[2022-11-13 18:25] LABS: ABO TYPING O; Antibody Screen POSITIVE (NEGATIVE); RH TYPING POSITIVE
[2022-11-13 18:26] LABS: Appearance Clear (Clear); Bacteria None Seen /HPF (None Seen); Bilirubin Moderate (Negative); Blood Negative (Negative); Epithelial Cells Rare /HPF (None Seen); Glucose, Urine Negative (Negative); Ketones Negative (Negative); Leukocyte Esterase Moderate (Negative); Nitrite Negative (Negative); Protein,Urine Dip Negative (Negative); RBC 0-2 /HPF (0-5); Specific Gravity 1.015 (1.005-1.030); Urobilinogen 0.2 mg/dL (0.2)
[2022-11-13 19:20] LABS: ADD URINE CULTURE? YES (NO)
[2022-11-13 19:26] LABS: INR 1.97 (0.8-3.0); PROTIME 19.6 SECONDS (9.4-12.5); PTT 48.8 SECONDS (25.1-36.5)
[2022-11-13] MEDS ORDERED: Sodium Chloride 0.9% 100 ML ONE (19:36)
[2022-11-13 20:23] VITALS: O2SAT 98
[2022-11-13 21:12] VITALS: BP 100/39; PULSE 71
== END 2022-11-13 20:55 | disposition short-term general hospital (02) ==
LOC: ED 12:33
DX: K76.7 Hepatorenal syndrome (principal); I95.9 Hypotension, unspecified; K92.2 Gastrointestinal hemorrhage, unspecified; R41.0 Disorientation, unspecified; R40.0 Somnolence; K75.81 Nonalcoholic steatohepatitis (NASH); E78.5 Hyperlipidemia, unspecified; I10 Essential (primary) hypertension; Z93.2 Ileostomy status; Z79.84 Long term (current) use of oral hypoglycemic drugs; Z79.891 Long term (current) use of opiate analgesic; Z79.899 Other long term (current) drug therapy
CPT/HCPCS: 36000; 36415; 71045; 80053; 81001; 82140; 82150; 83605; 83690; 84484; 85025; 85610; 85730; 86850; 86870; 86900; 86901; 87040; 87077; 87086; 87186; 93005; 96360; 96361; 96365; 96366; 96367; 99285; 99291; 99292; J1335